=== PATIENT | male | born 1990 | race Caucasian/White ===

== ENCOUNTER 2016-06-21 18:00 | Emergency (ER) | payer OTHER ==
[~2016-06-21] VITALS: Ht 188 cm; Wt 86.2 kg
[~2016-06-21 18:00] MED LIST: LIORESAL 10MG T10 MG PO; MOTRIN 600 MG600 MG PO; MULTIVITAMIN1 TAB PO; TRAMADOL50 MG PO
[2016-06-21 18:09] VITALS: BP 148/78
[2016-06-21] MEDS ORDERED: MELOXICAM15 M1 PO (19:15)
[2016-06-21] MEDS ORDERED: SOMA250 M1 PO (19:15)
--- NOTE | 2016-06-21 19:16 | ED NECK/BACK PAIN COMPLAINT ---
History of Present Illness General Chief Complaint: Low Back Pain/Injury Stated Complaint: BACK PAIN Source: patient Exam Limitations: no limitations Vital Signs & Intake/Output Vital Signs & Intake/Output Vital Signs Date Time Temp Pulse Resp B/P Pulse O2 O2 Flow FiO2 Ox Delivery Rate 06/21 1918 Room Air 06/21 1808 98.4 86 16 148/78 97 Room Air Allergies Coded Allergies: Penicillins (HIVES 06/21/16) amoxicillin (HIVES 06/21/16) Reconcile Medications Carisoprodol (SOMA) 250 MG TABLET 1 TAB PO BID PRN muscle spasms Ibuprofen 200 MG CAPSULE 3-4 TAB PO PRN PAIN (Reported) Meloxicam 15 MG TABLET 1 TAB PO DAILY PRN pain/inflammation Multivitamin (Multiple Vitamins) 1 EACH TABLET 1 TAB PO DAILY SUPPLEMENT ( Reported) Triage Note: PT STATES THAT HE INJURED HIS BACK 2 YEARS AGO AT WORK AND THAT HE HAS BEEN HAVING INCREASED PAIN TO LOW BACK. CALLED HIS MAJOR GIFTS OFFICER WHO ADVISED HIM TO COME TO ER. Triage Nurses Notes Reviewed? yes Onset: Gradual Duration: 1 year Timing: recent history Quality/Severity: moderate Location: lumbar spine, paraspinous muscles Radiation: none Context: old injury Method of Injury: prior injury Loss of Consciousness: no loss of consciousness HPI: Patient is a 25-year-old male presenting to the emergency Department chief complaint of low back pain nothing going on for the past year worse over the past several weeks. Denies any new injury. Has been seen and evaluated for back pain in the past, has had MRIs and has seen neuro surgery. Has been using [id number] Tylenol without relief. Denies any urinary incontinence or retention. Denies any nausea vomiting fevers or chills. No abdominal pain. Denies constipation. No urinary frequency or urgency or dysuria. Pain currently moderate worse with movement. (TARUN PADGETT) Past History Travel History Traveled to [place] past 21 day No Medical History Any Pertinent Medical History? see below for history Neurological: NONE EENT: NONE Cardiovascular: NONE Respiratory: NONE Gastrointestinal: NONE Hepatic: NONE Renal: NONE Musculoskeletal: chronic back pain Psychiatric: NONE Endocrine: NONE Blood Disorders: NONE Cancer(s): NONE ENGINEERING SECRETARY/Reproductive: NONE Surgical History Surgical History: non-contributory Psychosocial History What is your primary language Mongolian Tobacco Use: Quit <30 days ago ETOH Use: denies use Illicit Drug Use: denies illicit drug use Family History Hx Contributory? No (TARUN PADGETT) Review of Systems Review of Systems Constitutional: Reports: no symptoms. Comments Review of systems: See HPI, All other systems negative. Constitutional, no chills fever or weight loss HEENT: No visual changes no sore throat no congestion Cardiovascular: No chest pain Skin, no jaundice no rashes Respiratory: No dyspnea cough sputum or hemoptysis GI: No nausea no vomiting : No dysuria No hematuria Muscle skeletal: no neck pain, Neurologic: No numbness no confusion Psych: No stress anxiety Immunology: No splenectomy or history of AIDS (TARUN PADGETT) Physical Exam Physical Exam General Appearance: well developed/nourished, no apparent distress, alert, awake , comfortable Neck: normal inspection, supple, full range of motion, normal alignment Comments: Well-developed well-nourished person in no acute distress HEENT: Pupils equally round and reactive to light and accommodation. Nose is atraumatic. Neck: Supple, no lymphadenopathy, normal range of motion without pain or tenderness, no C-spine tenderness. Back: Tender to palpation in the lumbar paraspinal region. No bony tenderness. Limited range of motion with back flexion secondary to pain. Cardiovascular: Regular rate and rhythms no murmurs rubs or gallops, normal JVP Respiratory: No respiratory distress. Extremity: No edema, no calf tenderness to palpation, normal and equal pulses. Neuro: Alert oriented x3, motor sensory normal, patellar reflexes are 2+ bilaterally. Skin: No appreciable rash on exposed skin, skin is warm and dry. Psych: Mood and affect is normal, memory and judgment is normal. (TARUN PADGETT) Progress Differential Diagnosis: cauda equina syn, herniated disc, myofascial strain, pyelo/UTI, sciatica, T/L spine injury Plan of Care: Likely exacerbation of chronic pain. Patient will be treated symptomatically with Soma and meloxicam. He needs to follow-up with his neurosurgeon. He may need repeat MRI if symptoms persist. Neurologically intact. No signs of cauda equina. (TARUN PADGETT) Departure Departure Time of Disposition: 1912 Disposition: HOME OR SELF CARE Condition: Stable Clinical Impression Primary Impression: Back pain Qualifiers: Back pain location: low back pain Chronicity: chronic Back pain laterality: bilateral Sciatica presence: without sciatica Qualified Codes: M54.5 - Low back pain; G89.29 - Other chronic pain Referrals: PATIENT HAS NO PRIMARY CARE DR (PCP/Family) Additional Instructions: Follow-up with the neurosurgeon that your previously in contact with for reevaluation and potentially repeat MRI. Take meloxicam as prescribed for pain and inflammation. Take Flexeril as prescribed for muscle spasms. Avoid heavy lifting. Departure Forms: Customer Survey General Discharge Information Prescriptions: Current Visit Scripts Meloxicam 1 TAB PO DAILY PRN pain/inflammation #30 TAB Carisoprodol (SOMA) 1 TAB PO BID PRN muscle spasms #10 TAB (TARUN PADGETT) PA/FORMULATION TECHNICIAN Co-Sign Statement Statement: ED Attending supervision documentation- [] I saw and evaluated the patient. I have also reviewed all the pertinent lab results and diagnostic results. I agree with the findings and the plan of care as documented in the PA's/FORMULATION TECHNICIAN's documentation. [X] I have reviewed the ED Record and agree with the PA's/FORMULATION TECHNICIAN's documentation. [] Additions or exceptions (if any) to the PAs/FORMULATION TECHNICIAN's note and plan are summarized below: [] (MARICRUZ REYNOLDS,JODIE Ni)
[2016-06-21] MEDS ORDERED: IBUPROFEN200 M3 PO (19:17)
== END 2016-06-21 19:38 ==
LOC: ERH 18:00
DX: M54.5 Low back pain (principal)